=== PATIENT | male | born 1985 | race Caucasian/White ===

== ENCOUNTER 2018-02-06 14:49 | Inpatient (IN) | payer BC, OTHER ==
--- NOTE | 2018-02-08 01:10 | NUR ---
PRE ADMISSION NOTE Pt is a 32 y/o male seen at intake, A&O x 4 and ambulatory with steady gait. Vitals: BP 132/90, HR 86, 02 98%, T 98.4, RR 18, Pain 0/10. Pt denies history of allergies or seizures. Pt stated he is here for ETOH only and is currently intoxicated. Pt reports drinking 1750 ml daily. Pt refused to give further information about his use, stated "I don't want to give that information here...There is too many people." Pt appeared anxious, agitation, flushed and smelled of ETOH. Educated patient about rules and policies of the unit. Will continue care of patient upon arrival on unit.
--- NOTE | 2018-02-08 02:30 | NUR ---
AMA NOTE Patient stated in front of multiple individuals that he wanted to leave against medical advice and states "I just dont want to be here right now. I just want to leave. This place is not for me. Im just not ready right now. I have bottles of vodka waiting for me at home. I just want to go." Patient was educated about the risks and consequences of leaving AMA. Patient verbalized understanding but still demanded to leave and be escorted out. Multiple staff members attempted to speak with patient without any success. Patient was given a list of community resources in the case that he is in need of help. Patient refused and stated "I dont care about that. Just let me leave." Patient was made aware he would receive his belongings in the morning. Patient was very upset but verbalized understanding. Patient left the facility on 02/08/18 0225.
== END 2018-02-08 02:25 | disposition left against medical advice (07) | DRG 894 ==
LOC: SRC 02-08 00:33
PROVIDERS: ADMIT Family Medicine Addiction Medicine; ATTEND Family Medicine Addiction Medicine
DX: F10.239 Alcohol dependence with withdrawal, unspecified (principal); Z75.3 Unavailability and inaccessibility of health-care facilities